=== PATIENT | female | born 1990 | race Caucasian/White ===

== ENCOUNTER 2017-01-18 23:50 | Emergency (ER) | payer MEDICAID ==
[2017-01-18 23:50] VITALS: BMI 21.9
[2017-01-19] VITALS: BP 101/63
[2017-01-19 00:34] LABS: BASO % 1.1 % (0.0-2.0); EOS # 0.2 K/uL (0.0-0.7); EOS % 6.2 % (0.0-4.0); HEMATOCRIT 37.5 % (34.0-47.0); LYMPH # 1.3 K/uL (1.0-4.3); LYMPH % 33.1 % (20.0-40.0); MEAN CELL VOLUME 82.9 fL (81.0-99.0); MEAN CORPUSCULAR HEMOGLOBIN 26.8 pg (27.0-31.0); MEAN CORPUSCULAR HGB CONC 32.3 g/dL (33.0-37.0); MEAN PLATELET VOLUME 9.3 fL (7.2-11.7); MONO # 0.4 K/uL (0.0-0.8); RED CELL DISTRIBUTION WIDTH 12.7 % (11.5-14.5); WHITE BLOOD COUNT 3.9 K/uL (4.8-10.8)
[2017-01-19 00:39] LABS: URINE BILIRUBIN NEGATIVE (NEGATIVE); URINE BLOOD NEGATIVE (NEGATIVE); URINE COLOR Colorless (YELLOW); URINE GLUCOSE (UA) NORMAL (Normal); URINE KETONE NEGATIVE (NEGATIVE); URINE LEUKOCYTE ESTERASE NEG Leu/uL (Negative); URINE PROTEIN NEGATIVE (NEGATIVE); URINE UROBILINOGEN NORMAL mg/dL (0.2-1.0)
[2017-01-19 00:45] LABS: CHLORIDE 100 mmol/L (98-107)
[2017-01-19 00:46] LABS: POTASSIUM 4.5 mmol/L (3.6-5.2); SODIUM 140 mmol/L (132-148)
[2017-01-19 00:48] LABS: ALB/GLOB RATIO 1.3 (1.0-2.1); ALKALINE PHOSPHATASE 53 U/L (38-126); AST/SGOT 25 U/L (14-36); BILIRUBIN,TOTAL 0.3 mg/dL (0.2-1.3); BLOOD UREA NITROGEN 9 mg/dL (7-17); CARBON DIOXIDE 29 mmol/L (22-30); GFR AFRICAN-AMERICAN > 60; TOTAL PROTEIN 8.2 g/dL (6.3-8.3)
[2017-01-19 00:49] LABS: ALT/SGPT 28 U/L (9-52); CALCIUM 9.2 mg/dl (8.6-10.4); GLUCOSE,RANDOM 100 mg/dL (65-105)
--- NOTE | 2017-01-19 01:03 | C.PDOC ---
History Of Present Illness The patient, a 26 y/o female, presents to the ED for evaluation of colicky, lower abdominal pain which began around 1 week ago. Patient denies nausea, vomiting, and constipation. Time Seen by Provider: 01/19/17 00:17 Chief Complaint (Nursing): Abdominal Pain History Per: Patient History/Exam Limitations: no limitations Onset/Duration Of Symptoms: Other (around 1 week ) Current Symptoms Are (Timing): Still Present Location Of Pain/Discomfort: Other (lower ) Radiation Of Pain To:: None Quality Of Discomfort: "Pain" Associated Symptoms: Constipation. denies: Nausea, Vomiting Last Bowel Movement: Today Additional History Per: Patient Abnormal Vaginal Bleeding: No Past Medical History Reviewed: Historical Data, Nursing Documentation, Vital Signs Vital Signs: Last Vital Signs Temp 97.9 F 01/19/17 01:10 Pulse 70 01/19/17 01:10 Resp 18 01/19/17 01:10 BP 101/63 01/19/17 01:10 Pulse Ox 95 01/19/17 01:10 - Medical History PMH: Asthma Surgical History: No Surg Hx - [facility] Procedures LOCAL EXCIS BREAST LES (07/15/14) Family History: States: Unknown Family Hx - Social History Hx Tobacco Use: No Hx Alcohol Use: No Hx Substance Use: No - Immunization History Hx Tetanus Toxoid Vaccination: No Hx Influenza Vaccination: No Hx Pneumococcal Vaccination: No Review Of Systems Except As Marked, All Systems Reviewed And Found Negative. Gastrointestinal: Positive for: Abdominal Pain (lower ). Negative for: Nausea, Vomiting, Constipation Physical Exam - Physical Exam Appears: Non-toxic, No Acute Distress, Other (thin ) Skin: Normal Color, Warm, Dry Head: Atraumatic, Normacephalic Eye(s): bilateral: Normal Inspection Oral Mucosa: Moist Chest: Symmetrical, No Deformity, No Tenderness Cardiovascular: Rhythm Regular, No Murmur Respiratory: Normal Breath Sounds, No Rales, No Rhonchi, No Wheezing Gastrointestinal/Abdominal: Soft, No Tenderness, No Guarding, No Rebound, Other (+dull to percussion in lower abdominal region ) Back: Normal Inspection, No Vertebral Tenderness, No Paraspinal Tenderness Extremity: Normal ROM, Capillary Refill (less than 2 seconds ) Neurological/Psych: Oriented x3, Normal Speech, Normal Cognition Gait: Steady ED Course And Treatment - Laboratory Results Result Diagrams: 01/19/17 00:36 04/23/17 00:36 Lab Interpretation: Normal Urine POC: Negative O2 Sat by Pulse Oximetry: 100 (on RA) Pulse Ox Interpretation: Normal - Radiology CXR: Interpreted by Me CXR Interpretation: Yes: No Acute Disease - Other Rad abd x 2 X-Ray: Interpreted by Me (+FOS) Progress Note: XR Obstructive Series Abdomen and labs were ordered and reviewed. Reevaluation Time: :02 Reassessment Condition: Unchanged Medical Decision Making Medical Decision Making: constipation Disposition Doctor Will See Patient In The: Office Counseled Patient/Family Regarding: Studies Performed, Diagnosis - Disposition Referrals: Boom Dobbins MD [Medical Doctor] - Disposition: HOME/ ROUTINE Disposition Time: :02 Condition: GOOD Additional Instructions: drink a laxative now (Mag Citrate) and re-evaluate your abdominal discomfort after using the bathroom 2-3 times. Continue to eat 7 fresh fruits and vegetables/day Drink more water Power Walk 45 min/day x 5 days/week Your test today is NEGATIVE Instructions: Constipation (ED) - Clinical Impression Clinical Impression: Abdominal pain - Scribe Statement The provider has reviewed the documentation as recorded by the Scribe (Amira Paige) Provider Attestation: All medical record entries made by the Scribe were at my direction and personally dictated by me. I have reviewed the chart and agree that the record accurately reflects my personal performance of the history, physical exam, medical decision making, and the department course for this patient. I have also personally directed, reviewed, and agree with the discharge instructions and disposition.
[2017-01-19 01:10] VITALS: PULSE 70; RESP 18; TEMP 97.9
[2017-01-19 05:16] VITALS: O2SAT 100
--- NOTE | 2017-01-19 09:24 | RAD ---
PROCEDURE: Obstructive series 01/19/2017 HISTORY: abd pain COMPARISON: No prior TECHNIQUE: Frontal view of the chest and supine/erect views of the abdomen performed. FINDINGS: Heart size normal. Lung scott clear without focal consolidation or effusion. No apparent pneumothorax. Note made of an azygos fissure. No free air seen under the diaphragmatic surfaces. No evidence of obstruction. Moderate amount of stool seen throughout the colon consistent with mild constipation IMPRESSION: No acute cardiopulmonary disease. Findings consistent with mild constipation No evidence of acute mechanical bowel obstruction. No free air.
== END 2017-01-19 01:10 | disposition home or self-care (01) ==
LOC: C.ER 23:50
DX: K59.00 Constipation, unspecified (principal); R10.30 Lower abdominal pain, unspecified

== ENCOUNTER 2017-05-05 03:56 | Emergency (ER) | payer MEDICAID ==
[2017-05-05 03:56] VITALS: BMI 21.9
[2017-05-05 04:08] VITALS: RESP 20; O2SAT 99
--- NOTE | 2017-05-05 04:14 | C.PDOC ---
History Of Present Illness Pt c/o of epigastric pain and nausea x 1 day. Tha fever, SOB, nausea, vomiting , diarrhea, contipation. Pt reports nop food association, no UTI sx Time Seen by Provider: 05/05/17 04:10 Chief Complaint (Nursing): Abdominal Pain History Per: Patient History/Exam Limitations: no limitations Current Symptoms Are (Timing): Still Present Severity: Moderate Location Of Pain/Discomfort: Epigastric Radiation Of Pain To:: None Recent travel outside of the [place]: No Past Medical History Vital Signs: Last Vital Signs Temp 98.3 F 05/05/17 04:02 Pulse 84 05/05/17 04:02 Resp 20 05/05/17 04:02 BP 109/67 05/05/17 04:02 Pulse Ox 99 05/05/17 04:14 - Medical History PMH: Anemia, Asthma - [facility] Procedures LOCAL EXCIS BREAST LES (07/15/14) Family History: States: Unknown Family Hx - Social History Hx Tobacco Use: No Hx Alcohol Use: No Hx Substance Use: No - Immunization History Hx Tetanus Toxoid Vaccination: No Hx Influenza Vaccination: No Hx Pneumococcal Vaccination: No Review Of Systems Constitutional: Negative for: Fever, Chills Gastrointestinal: Positive for: Nausea, Abdominal Pain. Negative for: Vomiting , Diarrhea, Constipation Genitourinary: Negative for: Dysuria, Frequency, Incontinence, Hematuria, Vaginal Discharge, Vaginal Bleeding Physical Exam - Physical Exam Appears: Well, Non-toxic Eye(s): bilateral: Normal Inspection, PERRL Oral Mucosa: Moist Chest: Symmetrical, No Tenderness Cardiovascular: Rhythm Regular Respiratory: Normal Breath Sounds Gastrointestinal/Abdominal: Bowel Sounds, Soft, Tenderness (mild - epigastric area), No Distention, No Guarding Back: No CVA Tenderness ED Course And Treatment - Laboratory Results Result Diagrams: 05/05/17 04:33 05/05/17 04:33 Urine POC: Negative O2 Sat by Pulse Oximetry: 99 Pulse Ox Interpretation: Normal Progress Note: Pepcid IV and reglan IV ordered. Lbs reviewed - all wnl pt reports feeling better, abd now soft, NT. Pt advised PMD follow up Reassessment Condition: Improved Disposition - Disposition Referrals: Boom Dobbins MD [Primary Care Provider] - Disposition: HOME/ ROUTINE Disposition Time: 06:02 Condition: STABLE Additional Instructions: Please follwo up with PMD Take meds as directed High fiber diet Return to ER if worse Prescriptions: Famotidine [Pepcid] 20 mg PO DAILY #20 tab Instructions: Epigastric Pain (ED) Forms: [facility] (Icelandic) - Clinical Impression Clinical Impression: Epigastric abdominal pain
[2017-05-05] MEDS ORDERED: Sodium Chloride 0.9% 1,000 ML IV STA (04:24)
[2017-05-05] MEDS ORDERED: Sodium Chloride 0.9% 1,000 ML ONE (04:31)
[2017-05-05 04:39] LABS: BASO % 0.7 % (0.0-2.0); EOS # 0.1 K/uL (0.0-0.7); EOS % 1.8 % (0.0-4.0); LYMPH # 0.9 K/uL (1.0-4.3); LYMPH % 29.3 % (20.0-40.0); MEAN CELL VOLUME 82.6 fL (81.0-99.0); MEAN CORPUSCULAR HGB CONC 32.7 g/dL (33.0-37.0); MEAN PLATELET VOLUME 9.1 fL (7.2-11.7); MONO # 0.3 K/uL (0.0-0.8); MONO % 9.3 % (0.0-10.0); NEUT # 1.7 K/uL (1.8-7.0); NEUT % 58.9 % (50.0-75.0); RBC 4.44 Mil/uL (3.80-5.20); RED CELL DISTRIBUTION WIDTH 12.6 % (11.5-14.5)
[2017-05-05 04:40] LABS: SQUAMOUS EPITHIAL < 1 /hpf (0-5); URINE BACTERIA RARE (<OCC); URINE BILIRUBIN NEGATIVE (NEGATIVE); URINE BLOOD 1+ (NEGATIVE); URINE CLARITY Clear (Clear); URINE COLOR Straw (YELLOW); URINE GLUCOSE (UA) NORMAL (Normal); URINE LEUKOCYTE ESTERASE NEG Leu/uL (Negative); URINE NITRATE NEGATIVE (NEGATIVE); URINE PROTEIN NEGATIVE (NEGATIVE); URINE UROBILINOGEN NORMAL mg/dL (0.2-1.0)
[2017-05-05 04:44] LABS: HCG,QUALITATIVE URINE NEGATIVE (NEGATIVE)
[2017-05-05 05:13] LABS: ALB/GLOB RATIO 1.4 (1.0-2.1); ALBUMIN 4.1 g/dL (3.5-5.0); ALT/SGPT 46 U/L (9-52); AST/SGOT 42 U/L (14-36); BLOOD UREA NITROGEN 7 mg/dL (7-17); CALCIUM 8.9 mg/dl (8.6-10.4); GFR AFRICAN-AMERICAN > 60; GFR NON-AFRICAN AMERICAN > 60; LIPASE 205 U/L (23-300)
[2017-05-05 06:18] VITALS: BP 119/72; PULSE 85; TEMP 98.2
== END 2017-05-05 06:17 | disposition home or self-care (01) ==
LOC: SUPCPDRO 03:56 → C.ER 03:56
DX: R10.13 Epigastric pain (principal)
CPT/HCPCS: 80053; 81001; 83690; 84703; 85025; 96361; 96374; 96375; 99284; J2405; J7040

== ENCOUNTER 2017-06-21 00:53 | Emergency (ER) | payer MEDICAID ==
[2017-06-21 00:54] VITALS: BMI 21.9
[2017-06-21 01:07] VITALS: BP 111/66; PULSE 63; RESP 20; TEMP 98.1; O2SAT 100
--- NOTE | 2017-06-21 02:08 | C.PDOC ---
History Of Present Illness 26 y/o female presents to the ED for evaluation of left upper toothache which developed since earlier today. Patient states she was seen by her dentist and was told that she needs a root canal to the tooth. Patient has not yet undergone the procedure. Otherwise, denies fever, chills, headache, dizziness, throat or earache, drooling, trismus, facial swelling, dyspnea, shortness of breath, or wheezing. Patient also reports that she recently took a test which was positive. Patient notes her LMP was 8. She denies abdominal pain, N/V, vaginal bleeding or discharges, or any other related symptoms. Ambulate to Ed for evaluation, not in any apparent distress. Time Seen by Provider: 06/21/17 01:29 Chief Complaint (Nursing): Dental Pain History Per: Patient History/Exam Limitations: no limitations Onset/Duration Of Symptoms: Hrs, Gradual Current Symptoms Are (Timing): Still Present Quality: Positive for: Aching Additional History Per: Patient Past Medical History Reviewed: Historical Data, Nursing Documentation, Vital Signs Vital Signs: Last Vital Signs Temp 98.1 F 06/21/17 01:04 Pulse 63 06/21/17 01:04 Resp 20 06/21/17 01:04 BP 111/66 06/21/17 01:04 Pulse Ox 100 06/21/17 02:18 - Medical History PMH: Anemia, Asthma Surgical History: No Surg Hx - [facility] Procedures LOCAL EXCIS BREAST LES (07/15/14) Family History: States: Unknown Family Hx - Social History Hx Tobacco Use: No Hx Alcohol Use: No Hx Substance Use: No - Immunization History Hx Tetanus Toxoid Vaccination: No Hx Influenza Vaccination: No Hx Pneumococcal Vaccination: No Review Of Systems Constitutional: Negative for: Fever, Chills ENT: Positive for: Mouth Pain (left upper tooth pain ). Negative for: Other ( facial swelling, trismus ) Respiratory: Negative for: Shortness of Breath, Wheezing, Other (dyspnea ) Gastrointestinal: Negative for: Nausea, Vomiting, Abdominal Pain Genitourinary: Negative for: Dysuria, Frequency, Hematuria, Vaginal Discharge, Vaginal Bleeding Neurological: Negative for: Headache, Dizziness Physical Exam - Physical Exam Appears: Well, Non-toxic, No Acute Distress Skin: Normal Color, Warm, Dry, No Rash Head: Atraumatic, Normacephalic Eye(s): bilateral: PERRL Ear(s): Bilateral: Normal Nose: No Flaring Oral Mucosa: Moist, No Drooling Teeth: Tender To Palpation (left upper second molar ) Gingiva: Erythema (minimal around left upper second molar ), No Swelling, No Bleeding, No Abscess Throat: No Erythema, No Exudate Neck: Supple Cardiovascular: Rhythm Regular, No Murmur Respiratory: No Decreased Breath Sounds, No Accessory Muscle Use, No Rales, No Rhonchi, No Stridor, No Wheezing Gastrointestinal/Abdominal: Soft, No Tenderness, No Guarding, No Rebound Back: No CVA Tenderness Extremity: No Pedal Edema, Capillary Refill (less than 2 seconds ) Neurological/Psych: Oriented x3, Normal Speech, Normal Cognition Gait: Steady ED Course And Treatment O2 Sat by Pulse Oximetry: 100 (on RA) Pulse Ox Interpretation: Normal Progress Note: Patient received Tylenol PO and Penicillin PO. On re-evaluation , pt is afebrile,hemodynamicaly stable. Non-toxic. PulseOx 100% RA. ENT: exam c/w Left upper toothache, no evidence of tooth abscess, no drooling, dysphagia, dyspnea, trismus. Neck: Supple. Lungs: CTA B/L, BS equal B/L. ABd : benign. Pt denies any known allergy to medication. Pt advised on course of ds, advised on course. ref. to F/u with Dentist and OB in 2-3 days for re-evaluation. Return to ED if any worsening or new changes. Disposition Counseled Patient/Family Regarding: Diagnosis, Need For Followup, Rx Given - Disposition Referrals: [facility] [Provider Group] [facility] [Provider Group] Disposition: HOME/ ROUTINE Disposition Time: 02:05 Condition: STABLE Additional Instructions: Warm salty tooth baths 2-3 times daily for 5 minutes Take medication as prescribed Tylenol 1gm every 6-8 hours as need for pain Follow up with Dentist in 2-3 days for re-evaluation. Return to ED if any worsening or new changes. Prescriptions: Penicillin VK [Penicillin VK Tab] 250 mg PO Q6H #28 tab Instructions: Toothache (ED) Forms: [facility] (Chinese) - Clinical Impression Clinical Impression: Tooth ache - PA / TRAVELING NURSE / Resident Statement MD/DO has reviewed & agrees with the documentation as recorded. - Scribe Statement The provider has reviewed the documentation as recorded by the Scribe (Amira Paige) All medical record entries made by the Scribe were at my direction and personally dictated by me. I have reviewed the chart and agree that the record accurately reflects my personal performance of the history, physical exam, medical decision making, and the department course for this patient. I have also personally directed, reviewed, and agree with the discharge instructions and disposition.
== END 2017-06-21 02:53 | disposition home or self-care (01) ==
LOC: C.ER 00:53
DX: K08.89 Other specified disorders of teeth and supporting structures (principal)

== ENCOUNTER 2017-10-09 23:29 | Emergency (ER) | payer SELFPAY ==
[2017-10-09 23:30] VITALS: BMI 21.9
[2017-10-09 23:44] VITALS: BP 93/59; PULSE 98; TEMP 98.4; O2SAT 99
--- NOTE | 2017-10-10 00:25 | C.PDOC ---
History Of Present Illness 26 year old female who is 22 weeks , P:1, presents to the ER with a complaint of fever, cough, and body aches for the past 5 days. Patient reports she has been taking tylenol with some relief of symptoms. Patient has a daughter in the ER being evaluated for the same complaints. Denies CP, SOB, abdominal pain, vaginal bleeding, or urinary symptoms. Time Seen by Provider: 10/09/17 23:47 Chief Complaint (Nursing): Flu-like Symptoms History Per: Patient History/Exam Limitations: no limitations Onset/Duration Of Symptoms: Days Current Symptoms Are (Timing): Still Present Location Of Pain: Diffuse Myalgias Sick Contacts (Context): Family Member(s) Associated Symptoms: Fever, Cough, Myalgias Ear Symptoms: Bilateral: None Recent travel outside of the [place]: No Past Medical History Reviewed: Historical Data, Nursing Documentation, Vital Signs Vital Signs: Last Vital Signs Temp 98.4 F 10/09/17 23:34 Pulse 98 H 10/09/17 23:34 Resp 20 10/10/17 00:37 BP 93/59 L 10/09/17 23:34 Pulse Ox 99 10/10/17 03:14 - Medical History PMH: Anemia, Asthma - [facility] Procedures LOCAL EXCIS BREAST LES (07/15/14) Family History: States: Unknown Family Hx - Social History Hx Tobacco Use: No Hx Alcohol Use: No Hx Substance Use: No - Immunization History Hx Tetanus Toxoid Vaccination: No Hx Influenza Vaccination: No Hx Pneumococcal Vaccination: No Review Of Systems Constitutional: Positive for: Fever Respiratory: Positive for: Cough Gastrointestinal: Negative for: Nausea, Vomiting, Abdominal Pain Genitourinary: Negative for: Dysuria, Hematuria, Vaginal Bleeding Musculoskeletal: Positive for: Other (Body aches) Physical Exam - Physical Exam Appears: Non-toxic, No Acute Distress Skin: Normal Color, Warm, Dry Head: Atraumatic, Normacephalic Eye(s): bilateral: Normal Inspection Oral Mucosa: Moist Throat: Normal, No Erythema, No Exudate Neck: Normal, Supple Chest: Symmetrical, No Tenderness Cardiovascular: Rhythm Regular Respiratory: Normal Breath Sounds, No Rales, No Rhonchi, No Wheezing Gastrointestinal/Abdominal: Soft, No Tenderness, Other (Gravid) Neurological/Psych: Oriented x3, Normal Speech ED Course And Treatment O2 Sat by Pulse Oximetry: 99 (Room air) Pulse Ox Interpretation: Normal Progress Note: Patient is resting comfortably in the ER in no distress. Patient reassured that she is in no acute distress at this time; will discharge home with instructions to continue to take tylenol for symptoms follow up with PMD for further evaluation. Disposition Counseled Patient/Family Regarding: Diagnosis, Need For Followup - Disposition Referrals: Your Own OB, private [Other] Disposition: HOME/ ROUTINE Disposition Time: 00:22 Condition: STABLE Additional Instructions: Increase PO fluids Tylenol for pain or fever Bed rest May use home remedies for cough/ use cough drops Return to ER if chest pain, SOB, persistently high fever or worse Instructions: Upper Respiratory Infection (ED) Forms: [employer] (Indian), Work Excuse - Clinical Impression Clinical Impression: Upper respiratory infection - PA / COURT COMMISSIONER / Resident Statement MD/DO has reviewed & agrees with the documentation as recorded. - Scribe Statement The provider has reviewed the documentation as recorded by the Scribe Hiram Sanchez All medical record entries made by the Scribe were at my direction and personally dictated by me. I have reviewed the chart and agree that the record accurately reflects my personal performance of the history, physical exam, medical decision making, and the department course for this patient. I have also personally directed, reviewed, and agree with the discharge instructions and disposition.
[2017-10-10 00:37] VITALS: RESP 20
== END 2017-10-10 00:36 | disposition home or self-care (01) ==
LOC: C.ER 23:29
DX: O26.892 Other specified pregnancy related conditions, second trimester (principal); Z3A.22 22 weeks gestation of pregnancy; J06.9 Acute upper respiratory infection, unspecified